=== PATIENT | female | born 1995 | race American Indian/Alaskan Native ===

== ENCOUNTER 2017-02-01 11:26 | Emergency (ER) | payer SELFPAY ==
[2017-02-01 12:25] VITALS: BP 113/69
--- NOTE | 2017-02-01 13:21 | Emergency Department Report ---
Entered by MERRILL GUERRERO, acting as scribe for ROSA JON PA. HPI - General Chief Complaint: Dental/Oral Time Seen by Provider: 02/01/17 12:28 - HPI HPI: 21 y/o female with a PMHx of asthma presents to the ED c/o right lower wisdom dental pain that began 1 month ago. Rates pain a 6/10 in severity and she describes the pain as throbbing in quality. Aggravated with eating and alleviated with nothing. Denies sore throat, headache, fever, chills, nausea, and vomiting. Denies having a dentist, because she doesn't have dental insurance. Denies taking any medication for pain. NKDA. Denies any trauma to face. Denies any headache. Denies any neck pain or stiffness. ED Past Medical Hx - Past Medical History Previous Medical History?: Yes Hx Asthma: Yes - Surgical History Past Surgical History?: No - Family History Family history: no significant - Social History Smoking Status: Never Smoker Substance Use Type: None Other Social History: Single - Medications Home Medications: Home Medications Medication Instructions Recorded Confirmed Last Taken Type Acetaminophen/Codeine [Tylenol 1 tab PO Q6H PRN #12 tab 02/01/17 Unknown Rx /Codeine # 3 tab] Amoxicillin [Amoxicillin TAB] 875 mg PO BID #20 tablet 02/01/17 Unknown Rx Ibuprofen [Motrin] 600 mg PO Q8H PRN #15 tablet 02/01/17 Unknown Rx ED Review of Systems ROS: Stated complaint: TOOTHACHE Other details as noted in HPI Comment: All other systems reviewed and negative Constitutional: denies: chills, fever Eyes: denies: eye pain, eye discharge, vision change ENT: dental pain (right lower wisdom tooth pain). denies: ear pain, throat pain Respiratory: denies: cough, orthopnea, shortness of breath, SOB with exertion, SOB at rest, stridor, wheezing Cardiovascular: denies: chest pain, palpitations Endocrine: no symptoms reported Gastrointestinal: denies: abdominal pain, nausea, diarrhea Genitourinary: denies: urgency, dysuria, discharge Musculoskeletal: denies: back pain, joint swelling, arthralgia Skin: denies: rash, lesions Neurological: denies: headache, weakness, numbness, paresthesias Psychiatric: denies: anxiety, depression Hematological/Lymphatic: denies: easy bleeding, easy bruising Physical Exam - Physical Exam Vital Signs: Vital Signs 02/01/17 12:23 Temperature 98.3 F Pulse Rate 93 H Respiratory 18 Rate Blood Pressure 113/69 O2 Sat by Pulse 97 Oximetry General: General: well nourished, well developed, 21 year old female in no acute distress and nontoxic in appearance Physical Exam: Head: Normocephalic, atraumatic Mouth: Moist, no pharyngeal exudate or erythema. Uvula is midline and oral airway is patent. No facial swelling. No peritonsillar abscesses. Right lower wisdom tooth is partially fractured with no erythema. No trismus present Nose: Normal external appearance, no drainage. Maxillary and frontal sinuses nontender to palpation Neck: Supple, no C-spine tenderness, no tracheal deviation. Nontender to palpation. no adenopathy Ears: Bilateral TMs ar without any redness, swelling, or drainage. Bilateral EAC without any redness, swelling, or drainage. Abdomen: Soft, nontender to palpation in all quadrants, normal bowel sounds in all quadrants and negative CVA tenderness bilaterally. Eyes: Bilateral pupils equal and reactive to light, bilateral EOM intact. Bilateral sclera and conjunctiva without injection. Normal accommodation. Lungs: Clear to auscultation bilaterally, no rhonchi, wheezes, or rales. Normal work of breathing. No use of accessory muscles Extremities: No CCE. +2 pulses. No neurovascular compromise Cardiovascular: S1-S2, regular rate, regular rhythm. No murmurs. Skin: Clean, dry, and intact with no rash and no lesions Psych: Normal mood and behavior ED Course Vital Signs 02/01/17 12:23 Temperature 98.3 F Pulse Rate 93 H Respiratory 18 Rate Blood Pressure 113/69 O2 Sat by Pulse 97 Oximetry - Reevaluation(s) Reevaluation #1: 02/01/17 13:13 Uneventful ED stay ED Medical Decision Making - Medical Decision Making ED course: Patient here for toothache that's been ongoing. She says she has a dentist but has not contacted a dentist and here for pain management and antibiotic. He reports that the pain is in her right lower back tooth and also with fracture. Patient with toothache, dental caries and fractured tooth. Diagnostic and labs: No labs at this time. Review of previous visits. No prior visit noted. Assessment: Toothache, dental caries, fractured tooth. Plan follow-up: Patient to follow-up with her dentist which she does have one and to call today to schedule an appointment. Medication: Motrin and Tylenol 3, amoxicillin. Patient discharged home in stable condition Critical care attestation.: If time is entered above; I have spent that time in minutes in the direct care of this critically ill patient, excluding procedure time. ED Disposition Clinical Impression: Dental caries noted on examination, Toothache Tooth fracture Qualifiers: Encounter type: initial encounter Fracture type: closed Qualified Code(s): S02.5XXA - Fracture of tooth (traumatic), initial encounter for closed fracture Disposition: TO HOME OR SELFCARE Is pt being admited?: No Does the pt Need Aspirin: No Condition: Stable Instructions: Dental Caries (ED), Toothache (ED) Additional Instructions: Please follow up with dentist as discussed Increase fluid intake Take medication as prescribed . please do not drive or operate heavy machinery while taking Tylenol #3 Prescriptions: Acetaminophen/Codeine [Tylenol /Codeine # 3 tab] 1 tab PO Q6H PRN #12 tab PRN Reason: Toothache Amoxicillin [Amoxicillin TAB] 875 mg PO BID #20 tablet Ibuprofen [Motrin] 600 mg PO Q8H PRN #15 tablet PRN Reason: Pain Referrals: Your, Dentist [Other] - 3-5 Days Forms: Work/School Release Form(ED) This documentation as recorded by the YOLANDA aden JASMINE,accurately reflects the service I personally performed and the decisions made by me,ROSA JON PA.
== END 2017-02-01 13:44 | disposition home or self-care (01) ==
LOC: ED 11:26
DX: S02.5XXA Fracture of tooth (traumatic), initial encounter for closed fracture (principal); K02.9 Dental caries, unspecified; J45.909 Unspecified asthma, uncomplicated; X58.XXXA Exposure to other specified factors, initial encounter; Y93.89 Activity, other specified; Y99.9 Unspecified external cause status; Y92.89 Other specified places as the place of occurrence of the external cause
CPT/HCPCS: 99282

== ENCOUNTER 2017-07-07 20:41 | Emergency (ER) | payer OTHER ==
[2017-07-07 21:10] VITALS: BP 123/64
--- NOTE | 2017-07-08 02:46 | Emergency Department Report ---
Upper Respiratory HPI - HPI Chief Complaint: Upper Respiratory Infection Stated Complaint: ASTHMA Time Seen by Provider: 07/08/17 02:40 Duration: 5 Days URI Symptoms: Rhinorrhea: Yes, Cough: Yes, Shortness of Breath: No, Sick Contacts: Yes, Unable to Take Fluids: No, Urine Output Abnormal: No, Listless Behavior: No - Home Meds and Allergies Home Medications: Previous Rx's Medication Instructions Recorded Last Taken Type Acetaminophen/Codeine [Tylenol 1 tab PO Q6H PRN #12 tab 02/01/17 Unknown Rx /Codeine # 3 tab] Amoxicillin [Amoxicillin TAB] 875 mg PO BID #20 tablet 02/01/17 Unknown Rx Ibuprofen [Motrin] 600 mg PO Q8H PRN #15 tablet 02/01/17 Unknown Rx ALBUTEROL Inhaler [ProAir HFA 2 puff IH QID PRN #1 inhalation 07/08/17 Unknown Rx Inhaler] Benzonatate [Tessalon Perles] 100 mg PO Q8HR PRN #30 capsule 07/08/17 Unknown Rx Cetirizine HCl [ZyrTEC] 10 mg PO DAILY #30 capsule 07/08/17 Unknown Rx Fluticasone [Flonase] 1 spray NS QDAY #1 bottle 07/08/17 Unknown Rx predniSONE [Deltasone] 40 mg PO DAILY #10 tablet 07/08/17 Unknown Rx Allergies/Adverse Reactions: Allergies Allergy/AdvReac Type Severity Reaction Status Date / Time No Known Allergies Allergy Verified 02/01/17 12:26 ED Review of Systems ROS: Stated complaint: ASTHMA Other details as noted in HPI Constitutional: denies: chills, fever Eyes: denies: eye pain, eye discharge, vision change ENT: throat pain, congestion Respiratory: cough, wheezing. denies: shortness of breath Cardiovascular: denies: chest pain, palpitations, dyspnea on exertion, syncope, paroxysmal nocturnal dyspnea Endocrine: no symptoms reported Gastrointestinal: abdominal pain Genitourinary: denies: urgency, dysuria, discharge Musculoskeletal: denies: back pain, joint swelling, arthralgia Skin: denies: rash, lesions Neurological: denies: headache, weakness, paresthesias Psychiatric: denies: anxiety, depression Hematological/Lymphatic: denies: easy bleeding, easy bruising ED Past Medical Hx - Past Medical History Hx Asthma: Yes - Social History Smoking Status: Never Smoker Substance Use Type: None - Medications Home Medications: Home Medications Medication Instructions Recorded Confirmed Last Taken Type Acetaminophen/Codeine [Tylenol 1 tab PO Q6H PRN #12 tab 02/01/17 Unknown Rx /Codeine # 3 tab] Amoxicillin [Amoxicillin TAB] 875 mg PO BID #20 tablet 02/01/17 Unknown Rx Ibuprofen [Motrin] 600 mg PO Q8H PRN #15 tablet 02/01/17 Unknown Rx ALBUTEROL Inhaler [ProAir HFA 2 puff IH QID PRN #1 inhalation 07/08/17 Unknown Rx Inhaler] Benzonatate [Tessalon Perles] 100 mg PO Q8HR PRN #30 capsule 07/08/17 Unknown Rx Cetirizine HCl [ZyrTEC] 10 mg PO DAILY #30 capsule 07/08/17 Unknown Rx Fluticasone [Flonase] 1 spray NS QDAY #1 bottle 07/08/17 Unknown Rx predniSONE [Deltasone] 40 mg PO DAILY #10 tablet 07/08/17 Unknown Rx ED Bronchiolitis Physical Exam - Exam General: Vital signs noted. No distress. Alert and acting appropriately. HEENT: Yes Pharyngeal Erythema, Yes Rhinorrhea, No Conjuctival Injection, No Dry Mucous Membranes Ear: Neither TM Bulge, Neither TM Erythema, Neither EAC Discharge Neck: No Adenopathy, No Rigidity Lungs: Yes Clear Lung Sounds, Yes Good Air Exchange, Yes Cough, No Wheezes, No Stridor, No Nasal Flaring, No Retractions Heart: Yes Regular, No Murmur Abdomen: Yes Normal Bowel Sounds, No Tenderness, No Peritoneal Signs Skin: No Rash, No Eczema Neurologic: Alert and oriented, no deficits. Musculoskeletal: Unremarkable. ED Physical Exam - General Limitations: No Limitations General appearance: alert, in no apparent distress - Head Head exam: Present: atraumatic, normocephalic - Eye Eye exam: Present: normal appearance, PERRL, EOMI Pupils: Present: normal accommodation - ENT ENT exam: Present: mucous membranes moist, TM's normal bilaterally, normal external ear exam - Expanded ENT Exam Expanded Ear exam: Present: normal external inspection Mouth exam: Present: normal external inspection, tongue normal. Absent: trismus , muffled voice Teeth exam: Present: normal inspection Throat exam: Positive: tonsillar erythema. Negative: tonsillomegaly, tonsillar exudate, R peritonsillar mass, L peritonsillar mass - Neck Neck exam: Present: normal inspection, full ROM. Absent: tenderness, lymphadenopathy, thyromegaly - Respiratory Respiratory exam: Present: normal lung sounds bilaterally. Absent: respiratory distress, wheezes, stridor, chest wall tenderness, prolonged expiratory - Cardiovascular Cardiovascular Exam: Present: regular rate, normal rhythm, normal heart sounds. Absent: systolic murmur, diastolic murmur, rubs, gallop - GI/Abdominal GI/Abdominal exam: Present: soft, normal bowel sounds - Rectal Rectal exam: Present: deferred, normal inspection - Extremities Exam Extremities exam: Present: normal inspection, full ROM, normal capillary refill. Absent: tenderness, pedal edema, joint swelling, calf tenderness - Back Exam Back exam: Present: normal inspection, full ROM. Absent: tenderness, CVA tenderness (R), CVA tenderness (L), muscle spasm, paraspinal tenderness, vertebral tenderness, rash noted - Neurological Exam Neurological exam: Present: alert, oriented X3, CN II-XII intact, normal gait, reflexes normal - Psychiatric Psychiatric exam: Present: normal affect, normal mood - Skin Skin exam: Present: warm, dry, intact, normal color. Absent: rash ED Course Vital Signs 07/07/17 21:08 Temperature 98 F Pulse Rate 63 Blood Pressure 123/64 O2 Sat by Pulse 99 Oximetry ED Medical Decision Making - Medical Decision Making Patient is a 22-year-old asthmatic -[place] female out of albuterol inhaler for 3 months states cough and congestion for the past 3-4 days, with nocturnal wheezing there is no fever or chills no respiratory distress chest pain or shortness of breath patient does not have current PCP for refills states primary concern symptoms tonight coughing congestion, exam patient appears well and nontoxic ENT unremarkable TMs normal nose clear no polyps clear postnasal drip no obstruction pharynx mild erythema no lesions no exudate uvula midline no stridor lungs are clear this time all lobes . No wheezing no rales rhonchi plan refilled her albuterol prednisone burst patient will continue [id number] Zyrtec and Flonase but will prescribe same as requested pt will follow up with primary care , referral to Dr. Arellano, or return to the emergency department if symptoms worsen patient verbalizes understanding and agreement with discharge plan we'll DC to self in stable condition at this time. Critical care attestation.: If time is entered above; I have spent that time in minutes in the direct care of this critically ill patient, excluding procedure time. ED Disposition Clinical Impression: Bronchitis Disposition: DC-01 TO HOME OR SELFCARE Is pt being admited?: No Does the pt Need Aspirin: No Condition: Good Instructions: Chronic Bronchitis (ED) Prescriptions: ALBUTEROL Inhaler [ProAir HFA Inhaler] 2 puff IH QID PRN #1 inhalation PRN Reason: Shortness Of Breath Benzonatate [Tessalon Perles] 100 mg PO Q8HR PRN #30 capsule PRN Reason: Cough Cetirizine HCl [ZyrTEC] 10 mg PO DAILY #30 capsule Fluticasone [Flonase] 1 spray NS QDAY #1 bottle predniSONE [Deltasone] 40 mg PO DAILY #10 tablet Referrals: PRIMARY CARE, [Primary Care Provider] - 3-5 Days Forms: Work/School Release Form(ED) Time of Disposition: 02:58
== END 2017-07-08 03:03 | disposition home or self-care (01) ==
LOC: ED 20:41
DX: J40 Bronchitis, not specified as acute or chronic (principal)
CPT/HCPCS: 99282

== ENCOUNTER 2017-09-22 10:31 | Emergency (ER) | payer OTHER ==
[2017-09-22] MEDS ORDERED: MOTRIN PO ONE (13:24)
[2017-09-22] MEDS ORDERED: MUCINEX ER PO ONE (13:26)
[2017-09-22] MEDS ORDERED: ZOFRAN ODT PO ONE (13:27)
--- NOTE | 2017-09-22 13:36 | Emergency Department Report ---
Chief Complaint: Fever Stated Complaint: FEVER/CHILLS/BODY ACHES Time Seen by Provider: 09/22/17 13:18 - HPI History of Present Illness: The patient's 22-year-old female presents for evaluation of URI symptoms. The patient reports 1 day of fever, nonproductive cough, shortness of throat, and generalized myalgias. The patient denies headache, dyspnea, chest pain, neck stiffness, dysphagia, stridor, drooling, difficulty tolerating secretions, dysphonia, hoarseness of voice, abdominal pain, dysuria, vomiting, diarrhea, vaginal discharge, vaginal bleeding. - Exam Vital Signs: Vital Signs 09/22/17 09/22/17 11:48 13:27 Temperature 100.1 F H Pulse Rate 113 H 94 H Respiratory 18 Rate Blood Pressure 122/68 O2 Sat by Pulse 100 Oximetry MSE screening note: Focused history and physical exam performed. Due to findings the following was ordered: ED Disposition for MSE Condition: Stable Referrals: PRIMARY CARE, [Primary Care Provider] - 3-5 Days
[2017-09-22] MEDS ORDERED: TYLENOL PO ONE (13:37)
--- NOTE | 2017-09-22 13:57 | XRay Report ---
Chest 2 views: History: Dyspnea. Findings: Normal cardiomediastinal silhouette the trachea is midline. No consolidation, pneumothorax or pleural effusion. Impression: No acute cardiopulmonary findings.
[2017-09-22 14:21] LABS: Bilirubin,Urine NEG (Negative); Blood,Urine NEG (Negative); Color,Urine Yellow (Yellow); Mucus,Urine FEW /HPF; Protein,Urine <15 mg/dL mg/dL (Negative)
--- NOTE | 2017-09-22 15:26 | Emergency Department Report ---
- General Chief Complaint: Fever Stated Complaint: FEVER/CHILLS/BODY ACHES Time Seen by Provider: 09/22/17 13:18 Source: patient Mode of arrival: Ambulatory Limitations: No Limitations - History of Present Illness Initial Comments: This is a 22-year-old female nontoxic, well nourished in appearance, no acute signs of distress presents to the ED with c/o of productive cough, fever, chills , body aches, rhinorrhea, nasal congestion, and sore throat x1 day. Patient describes productive cough as yellow mucus production. Patient denies any sick contact. Patient denies any recent travels, long car, recent hospital stays. Patient denies any calf pain or calf tenderness. Patient denies any chest pain , short of breath, fever, chills, nausea, vomiting, hemoptysis, numbness, tingling, headache or stiff neck. Patient denies any allergies or significant PMH. MD Complaint: fever, cough, sore throat, rhinorrhea, nasal congestion, other ( body aches) -: days(s) (1) Severity: mild Severity scale (0 -10): 8 Quality: aching Consistency: constant Improves With: nothing Worsens With: nothing Associated Symptoms: fever, chills, rhinorrhea, nasal congestion, sore throat, cough. denies: myalgias, diaphoresis, headache, stiff neck, chest pain, shortness of breath, abdominal pain, nausea, vomiting, diarrhea, dysuria, rash, confusion, right sweats, weight loss, epistaxis, hoarseness, ear pain Treatments Prior to Arrival: none - Related Data Previous Rx's Medication Instructions Recorded Last Taken Type Acetaminophen/Codeine [Tylenol 1 tab PO Q6H PRN #12 tab 02/01/17 Unknown Rx /Codeine # 3 tab] Amoxicillin [Amoxicillin TAB] 875 mg PO BID #20 tablet 02/01/17 Unknown Rx Ibuprofen [Motrin] 600 mg PO Q8H PRN #15 tablet 02/01/17 Unknown Rx ALBUTEROL Inhaler [ProAir HFA 2 puff IH QID PRN #1 inhalation 07/08/17 Unknown Rx Inhaler] Benzonatate [Tessalon Perles] 100 mg PO Q8HR PRN #30 capsule 07/08/17 Unknown Rx Cetirizine HCl [ZyrTEC] 10 mg PO DAILY #30 capsule 07/08/17 Unknown Rx Fluticasone [Flonase] 1 spray NS QDAY #1 bottle 07/08/17 Unknown Rx predniSONE [Deltasone] 40 mg PO DAILY #10 tablet 07/08/17 Unknown Rx Amoxicillin/K Clav Tab [Augmentin 1 tab PO Q12HR #20 tab 09/22/17 Unknown Rx 875 mg] Benzonatate [Tessalon Perle] 100 mg PO Q6H PRN #20 capsule 09/22/17 Unknown Rx Ibuprofen [Motrin] 600 mg PO Q8H PRN #30 tablet 09/22/17 Unknown Rx Oseltamivir [Tamiflu] 75 mg PO BID #14 cap 09/22/17 Unknown Rx Allergies Allergy/AdvReac Type Severity Reaction Status Date / Time No Known Allergies Allergy Verified 02/01/17 12:26 ED Review of Systems ROS: Stated complaint: FEVER/CHILLS/BODY ACHES Other details as noted in HPI Constitutional: chills, fever Eyes: denies: eye pain, eye discharge, vision change ENT: throat pain. denies: ear pain Respiratory: cough. denies: shortness of breath, wheezing Cardiovascular: denies: chest pain, palpitations Endocrine: no symptoms reported Gastrointestinal: denies: abdominal pain, nausea, diarrhea Genitourinary: denies: urgency, dysuria, discharge Musculoskeletal: denies: back pain, joint swelling, arthralgia Skin: denies: rash, lesions Neurological: denies: headache, weakness, paresthesias Psychiatric: denies: anxiety, depression Hematological/Lymphatic: denies: easy bleeding, easy bruising ED Past Medical Hx - Past Medical History Hx Asthma: Yes - Surgical History Past Surgical History?: No - Social History Smoking Status: Current Every Day Smoker Substance Use Type: None - Medications Home Medications: Home Medications Medication Instructions Recorded Confirmed Last Taken Type Acetaminophen/Codeine [Tylenol 1 tab PO Q6H PRN #12 tab 02/01/17 Unknown Rx /Codeine # 3 tab] Amoxicillin [Amoxicillin TAB] 875 mg PO BID #20 tablet 02/01/17 Unknown Rx Ibuprofen [Motrin] 600 mg PO Q8H PRN #15 tablet 02/01/17 Unknown Rx ALBUTEROL Inhaler [ProAir HFA 2 puff IH QID PRN #1 inhalation 07/08/17 Unknown Rx Inhaler] Benzonatate [Tessalon Perles] 100 mg PO Q8HR PRN #30 capsule 07/08/17 Unknown Rx Cetirizine HCl [ZyrTEC] 10 mg PO DAILY #30 capsule 07/08/17 Unknown Rx Fluticasone [Flonase] 1 spray NS QDAY #1 bottle 07/08/17 Unknown Rx predniSONE [Deltasone] 40 mg PO DAILY #10 tablet 07/08/17 Unknown Rx Amoxicillin/K Clav Tab [Augmentin 1 tab PO Q12HR #20 tab 09/22/17 Unknown Rx 875 mg] Benzonatate [Tessalon Perle] 100 mg PO Q6H PRN #20 capsule 09/22/17 Unknown Rx Ibuprofen [Motrin] 600 mg PO Q8H PRN #30 tablet 09/22/17 Unknown Rx Oseltamivir [Tamiflu] 75 mg PO BID #14 cap 09/22/17 Unknown Rx ED Physical Exam - General Limitations: No Limitations General appearance: alert, in no apparent distress - Head Head exam: Present: atraumatic, normocephalic - Eye Eye exam: Present: normal appearance, PERRL, EOMI Pupils: Present: normal accommodation - ENT ENT exam: Present: mucous membranes moist, TM's normal bilaterally, normal external ear exam - Expanded ENT Exam Expanded Ear exam: Present: normal external inspection Mouth exam: Present: normal external inspection, tongue normal. Absent: drooling, trismus, muffled voice, tongue elevation, laceration Teeth exam: Present: normal inspection Throat exam: Positive: tonsillar erythema, tonsillomegaly (2+), tonsillar exudate, other (Uvula midline. No abscess or swelling noted.). Negative: R peritonsillar mass, L peritonsillar mass - Neck Neck exam: Present: normal inspection, full ROM, lymphadenopathy (bilateral tonsillar). Absent: tenderness, meningismus, thyromegaly - Respiratory Respiratory exam: Present: normal lung sounds bilaterally. Absent: respiratory distress, wheezes, rales, rhonchi, stridor, chest wall tenderness, accessory muscle use, decreased breath sounds, prolonged expiratory - Cardiovascular Cardiovascular Exam: Present: regular rate, normal rhythm, tachycardia, normal heart sounds. Absent: irregular rhythm, systolic murmur, diastolic murmur, rubs , gallop - GI/Abdominal GI/Abdominal exam: Present: soft, normal bowel sounds. Absent: distended, tenderness, guarding, rebound, rigid, diminished bowel sounds - Rectal Rectal exam: Present: deferred - Extremities Exam Extremities exam: Present: normal inspection, full ROM, normal capillary refill. Absent: tenderness, pedal edema, joint swelling, calf tenderness - Back Exam Back exam: Present: normal inspection, full ROM. Absent: tenderness, CVA tenderness (R), CVA tenderness (L), muscle spasm, paraspinal tenderness, vertebral tenderness, rash noted - Neurological Exam Neurological exam: Present: alert, oriented X3, CN II-XII intact, normal gait, reflexes normal - Psychiatric Psychiatric exam: Present: normal affect, normal mood - Skin Skin exam: Present: warm, dry, intact, normal color. Absent: rash ED Course Vital Signs 09/22/17 09/22/17 11:48 13:27 Temperature 100.1 F H Pulse Rate 113 H 94 H Respiratory 18 Rate Blood Pressure 122/68 O2 Sat by Pulse 100 Oximetry - Reevaluation(s) Reevaluation #1: 09/22/17 15:23 Patient is speaking in full sentences with no signs of distress noted. - Consultations Consultation #1: 09/22/17 15:24 Patient has been consulted with Dr. De La Rosa about patient history, physical exam, and labs and examined and screened patient and agrees to ED plan of care and discharge plan of care. ED Medical Decision Making - Medical Decision Making This is a 22-year-old female that presents with upper respiratory infection, tonsillitis, and influenza. Patient is stable and was examined by me. Chest x- ray has been obtained and dictated by radiologist with normal exam. Patient is notified of x-ray results with no questions noted. Due to patient having symptoms of upper respiratory infection and symptoms of influenza and worsening I will treat patient empirically Tamiflu with augmentin. Patient is within the >72 hour window for tamiflu. Patient was instructed to increase hydration, rest and take Motrin for fever episodes. Vitals stable. Patient is nonfebrile and normal heart rate. Patient was orally hydrated and patient tolerated well known nausea or vomiting. Patient was instructed Follow-up with a primary care doctor in 3-5 days or if symptoms worsen and continue return to emergency room as soon as possible. At time time of discharge, the patient does not seem toxic or ill in appearance. No acute signs of distress noted. Patient agrees to discharge treatment plan of care. No further questions noted by the patient. Critical care attestation.: If time is entered above; I have spent that time in minutes in the direct care of this critically ill patient, excluding procedure time. ED Disposition Clinical Impression: Tonsillitis, Influenza Upper respiratory infection Qualifiers: URI type: unspecified URI Qualified Code(s): J06.9 - Acute upper respiratory infection, unspecified Disposition: TO HOME OR SELFCARE Is pt being admited?: No Does the pt Need Aspirin: No Condition: Stable Instructions: Upper Respiratory Infection (ED), Amoxicillin/Clavulanate Potassium (By mouth), Influenza (ED), Oseltamivir (By mouth) Additional Instructions: Follow-up with a primary care doctor in 3-5 days or if symptoms worsen and continue return to emergency room as soon as possible. Increase rest, hydration and take Motrin as prescribed during fever episode. Prescriptions: Amoxicillin/K Clav Tab [Augmentin 875 mg] 1 tab PO Q12HR #20 tab Benzonatate [Tessalon Perle] 100 mg PO Q6H PRN #20 capsule PRN Reason: Cough Ibuprofen [Motrin] 600 mg PO Q8H PRN #30 tablet PRN Reason: Pain Oseltamivir [Tamiflu] 75 mg PO BID #14 cap Referrals: PRIMARY CARE, [Primary Care Provider] - 3-5 Days HELLEN GHOSH MD [Staff Physician] - 3-5 Days [facility] [Outside] - 3-5 Days [facility] [Outside] - 3-5 Days Forms: Work/School Release Form(ED)
[2017-09-22 15:39] VITALS: BP 98/40
== END 2017-09-22 15:53 | disposition home or self-care (01) ==
LOC: ED 10:31
DX: J03.90 Acute tonsillitis, unspecified (principal); J45.909 Unspecified asthma, uncomplicated; F17.200 Nicotine dependence, unspecified, uncomplicated
CPT/HCPCS: 71046; 81001; 99284; Q0162

== ENCOUNTER 2018-02-15 13:20 | Emergency (ER) | payer OTHER ==
[2018-02-15 13:46] VITALS: BP 118/70
[2018-02-15 15:16] LABS: HCG Qualitative,Urine Negative (Negative)
--- NOTE | 2018-02-15 16:18 | XRay Report ---
FINAL REPORT EXAM: XR SHOULDER 2+V RT HISTORY: pain/creptius patient with history of recurrent dislocations, increasing frequency TECHNIQUE: Three views right shoulder Comparison: FINDINGS: Normal bony mineralization. No fracture or dislocation. No degenerative arthritis. Mild superiorly located distal clavicle relative to the acromion. AC joint measures 4.3 millimeters. Imaged right lung apex is clear. IMPRESSION: No acute fracture or dislocation. Mildly widened right AC joint measures 4.3 millimeters. Distal clavicle is slightly superiorly located relative to the acromion.
--- NOTE | 2018-02-15 17:03 | Emergency Department Report ---
ED General Adult HPI - General Chief complaint: Extremity Injury, Upper Stated complaint: SHOULDER ACHES/PAIN Time Seen by Provider: 02/15/18 16:43 Source: patient Mode of arrival: Ambulatory Limitations: No Limitations - History of Present Illness Initial comments: Patient complains of right shoulder pain for the last month and feels at times is popping out of place. Patient denies any injury or acute trauma to that shoulder. 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 Patient has no other complaints. -: Sudden Location: upper extremity Radiation: non-radiation Severity scale (0 -10): 5 Improves with: rest Worsens with: movement Associated Symptoms: denies other symptoms Treatments Prior to Arrival: none - Related Data Previous Rx's Medication Instructions Recorded Last Taken Type Acetaminophen/Codeine [Tylenol 1 tab PO Q6H PRN #12 tab 02/01/17 Unknown Rx /Codeine # 3 tab] Amoxicillin [Amoxicillin TAB] 875 mg PO BID #20 tablet 02/01/17 Unknown Rx Ibuprofen [Motrin] 600 mg PO Q8H PRN #15 tablet 02/01/17 Unknown Rx ALBUTEROL Inhaler [ProAir HFA 2 puff IH QID PRN #1 inhalation 07/08/17 Unknown Rx Inhaler] Benzonatate [Tessalon Perles] 100 mg PO Q8HR PRN #30 capsule 07/08/17 Unknown Rx Cetirizine HCl [ZyrTEC] 10 mg PO DAILY #30 capsule 07/08/17 Unknown Rx Fluticasone [Flonase] 1 spray NS QDAY #1 bottle 07/08/17 Unknown Rx predniSONE [Deltasone] 40 mg PO DAILY #10 tablet 07/08/17 Unknown Rx Amoxicillin/K Clav Tab [Augmentin 1 tab PO Q12HR #20 tab 09/22/17 Unknown Rx 875 mg] Benzonatate [Tessalon Perle] 100 mg PO Q6H PRN #20 capsule 09/22/17 Unknown Rx Ibuprofen [Motrin] 600 mg PO Q8H PRN #30 tablet 09/22/17 Unknown Rx Oseltamivir [Tamiflu] 75 mg PO BID #14 cap 09/22/17 Unknown Rx Ibuprofen [Motrin] 800 mg PO Q8HR PRN #30 tablet 02/15/18 Unknown Rx traMADol [Ultram] 50 mg PO Q6HR PRN #12 tablet 02/15/18 Unknown Rx Allergies Allergy/AdvReac Type Severity Reaction Status Date / Time No Known Allergies Allergy Verified 02/01/17 12:26 ED Review of Systems ROS: Stated complaint: SHOULDER ACHES/PAIN Other details as noted in HPI Comment: All other systems reviewed and negative Constitutional: denies: chills, fever Eyes: denies: eye pain, eye discharge, vision change ENT: denies: ear pain, throat pain Respiratory: denies: cough, shortness of breath, wheezing Cardiovascular: denies: chest pain, palpitations Endocrine: no symptoms reported Gastrointestinal: denies: abdominal pain, nausea, diarrhea Genitourinary: denies: urgency, dysuria, discharge Musculoskeletal: denies: back pain, joint swelling, arthralgia Skin: denies: rash, lesions Neurological: denies: headache, weakness, paresthesias Psychiatric: denies: anxiety, depression Hematological/Lymphatic: denies: easy bleeding, easy bruising ED Past Medical Hx - Past Medical History Hx Asthma: Yes - Social History Smoking Status: Never Smoker Substance Use Type: None - Medications Home Medications: Home Medications Medication Instructions Recorded Confirmed Last Taken Type Acetaminophen/Codeine [Tylenol 1 tab PO Q6H PRN #12 tab 02/01/17 Unknown Rx /Codeine # 3 tab] Amoxicillin [Amoxicillin TAB] 875 mg PO BID #20 tablet 02/01/17 Unknown Rx Ibuprofen [Motrin] 600 mg PO Q8H PRN #15 tablet 02/01/17 Unknown Rx ALBUTEROL Inhaler [ProAir HFA 2 puff IH QID PRN #1 inhalation 07/08/17 Unknown Rx Inhaler] Benzonatate [Tessalon Perles] 100 mg PO Q8HR PRN #30 capsule 07/08/17 Unknown Rx Cetirizine HCl [ZyrTEC] 10 mg PO DAILY #30 capsule 07/08/17 Unknown Rx Fluticasone [Flonase] 1 spray NS QDAY #1 bottle 07/08/17 Unknown Rx predniSONE [Deltasone] 40 mg PO DAILY #10 tablet 07/08/17 Unknown Rx Amoxicillin/K Clav Tab [Augmentin 1 tab PO Q12HR #20 tab 09/22/17 Unknown Rx 875 mg] Benzonatate [Tessalon Perle] 100 mg PO Q6H PRN #20 capsule 09/22/17 Unknown Rx Ibuprofen [Motrin] 600 mg PO Q8H PRN #30 tablet 09/22/17 Unknown Rx Oseltamivir [Tamiflu] 75 mg PO BID #14 cap 09/22/17 Unknown Rx Ibuprofen [Motrin] 800 mg PO Q8HR PRN #30 tablet 02/15/18 Unknown Rx traMADol [Ultram] 50 mg PO Q6HR PRN #12 tablet 02/15/18 Unknown Rx ED Physical Exam - General Limitations: No Limitations General appearance: alert, in no apparent distress - Head Head exam: Present: atraumatic, normocephalic - Eye Eye exam: Present: normal appearance - ENT ENT exam: Present: mucous membranes moist - Neck Neck exam: Present: normal inspection - Respiratory Respiratory exam: Present: normal lung sounds bilaterally. Absent: respiratory distress - Cardiovascular Cardiovascular Exam: Present: regular rate - Extremities Exam Extremities exam: Present: other (patient has tenderness to palpation of the right AC Joint) - Back Exam Back exam: Present: normal inspection - Neurological Exam Neurological exam: Present: alert, oriented X3, CN II-XII intact. Absent: motor sensory deficit - Psychiatric Psychiatric exam: Present: normal affect, normal mood - Skin Skin exam: Present: warm, dry, intact, normal color. Absent: rash ED Course Vital Signs 02/15/18 13:43 Temperature 98.2 F Pulse Rate 81 Respiratory 18 Rate Blood Pressure 118/70 O2 Sat by Pulse 100 Oximetry ED Medical Decision Making - Medical Decision Making Discussed results with patient and plan a care Sling provided Critical care attestation.: If time is entered above; I have spent that time in minutes in the direct care of this critically ill patient, excluding procedure time. ED Disposition Clinical Impression: Acromioclavicular (joint) (ligament) sprain Disposition: DC-01 TO HOME OR SELFCARE Is pt being admited?: No Does the pt Need Aspirin: No Condition: Stable Instructions: Acromioclavicular Separation (ED) Additional Instructions: return if worse Prescriptions: Ibuprofen [Motrin] 800 mg PO Q8HR PRN #30 tablet PRN Reason: pain traMADol [Ultram] 50 mg PO Q6HR PRN #12 tablet PRN Reason: Pain Referrals: PRIMARY CARE, [Primary Care Provider] - 3-5 Days CARLOS HELLER MD [Staff Physician] - 3-5 Days [facility] [Outside] - 3-5 Days [facility] [Outside] - 3-5 Days Forms: Work/School Release Form(ED) Time of Disposition: 17:01
== END 2018-02-15 17:18 | disposition home or self-care (01) ==
LOC: ED 13:20
DX: S43.51XA Sprain of right acromioclavicular joint, initial encounter (principal); J45.909 Unspecified asthma, uncomplicated; X58.XXXA Exposure to other specified factors, initial encounter; Y93.89 Activity, other specified; Y99.8 Other external cause status; Y92.89 Other specified places as the place of occurrence of the external cause
CPT/HCPCS: 81025

== ENCOUNTER 2018-07-12 15:48 | Emergency (ER) | payer SELFPAY ==
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
== END 2018-07-12 16:59 | disposition home or self-care (01) ==
LOC: ED 15:48
CPT/HCPCS: 99282

== ENCOUNTER 2019-11-06 09:43 | Outpatient (CLI) | payer MEDICAID ==
[2019-11-06] MEDS ORDERED: ONDANSETRON 4 MG/2 ML INJ IV ONE (10:17)
[2019-11-06] MEDS ORDERED: LACTATED RINGERS 1,000 ML IV ONE (10:17)
[2019-11-06] MEDS ORDERED: FAMOTIDINE 20 MG/2 ML INJ IV ONE (10:19)
[2019-11-06 10:46] LABS: Eosinophils % (Auto) 0.2 % (0.0-4.3); Monocytes # (Auto) 0.6 K/mm3 (0.0-0.8); Monocytes % (Auto) 7.8 % (0.0-7.3)
[2019-11-06 10:50] LABS: Hematocrit 33.9 % (30.3-42.9); Hemoglobin 10.8 gm/dl (10.1-14.3); Mean Corpuscular HGB Conc 32 % (30-34); Red Blood Count 5.01 M/mm3 (3.65-5.03); Red Cell Distribution Width 15.5 % (13.2-15.2)
[2019-11-06 10:59] LABS: Bilirubin,Urine NEG (Negative); Blood,Urine NEG (Negative); Color,Urine Yellow (Yellow); Mucus,Urine FEW /HPF; Protein,Urine <15 mg/dL mg/dL (Negative)
[2019-11-06 11:07] LABS: Alanine Aminotransferase 12 units/L (7-56); Albumin 3.4 g/dL (3.9-5); BUN/Creatinine Ratio 10; Blood Urea Nitrogen 4 mg/dL (7-17); Calcium 9.3 mg/dL (8.4-10.2); Hemolysis Index 46
[2019-11-06 11:30] LABS: Mean Corpuscular Volume 68 fl (79-97)
[2019-11-06 12:27] VITALS: BP 118/68
[2019-11-06 12:52] LABS: Basophils % (Manual) 0 % (0.0-1.8); Eosinophils % (Manual) 0 % (0.0-4.3); Total Cells Counted 100
[2019-11-06 12:53] LABS: Anisocytosis 1+; Platelet Estimate Consistent w Auto; Tear Drop Cells 1+
[2019-11-06 12:54] LABS: Platelet Count 216 K/mm3 (140-440)
--- NOTE | 2019-11-06 18:11 | Ultrasound Report ---
LIMITED OBSTETRIC ULTRASOUND WITH BIOPHYSICAL PROFILE HISTORY: Evaluate amniotic fluid index. Clinical gestational age 38 weeks 6 days COMPARISON: None. TECHNIQUE: Obstetric sonogram performed for biophysical profile assessment. FINDINGS: Gestation: Single intrauterine Presentation: Currentlycephalic Amniotic Fluid Index: 17.2 cm. There is suggestion of a small amount of debris within the amniotic fl uid, likely of no clinical significance at this late gestational age. ANATOMY: Detailed anatomic survey was not requested. heart rate is 156 beats per minute. BIOPHYSICAL PROFILE: Movement: 2 Tone: 2 Breathin Amniotic Fluid: 2 Total: 8 out of 8 IMPRESSION Biophysical Profile 02/16. Normal AMBIKA of 17.2 cm. Signer Name: Socorro Amezcua MD Signed: 11/06/2019 6:07 PM Workstation Name: [id number]
== END 2019-11-06 13:35 | disposition home or self-care (01) ==
LOC: TRG 09:43 → APU 09:46 → TRG 13:35
PROVIDERS: ATTEND Obstetrics & Gynecology
DX: O26.893 Other specified pregnancy related conditions, third trimester (principal); R07.89 Other chest pain; O47.1 False labor at or after 37 completed weeks of gestation; Z3A.38 38 weeks gestation of pregnancy
CPT/HCPCS: 36415; 59025; 76815; 76819; 80053; 81001; 85007; 85025; 96365; 96366; 96368; J2405; J7120; 96360; 96374; 96375

== ENCOUNTER 2019-11-14 11:56 | Outpatient (CLI) | payer MEDICAID ==
[2019-11-14 12:22] VITALS: BP 125/78
--- NOTE | 2019-11-14 14:16 | Ultrasound Report ---
ULTRASOUND BIOPHYSICAL PROFILE INDICATION: CONTRACTIONS, DECREASE FHT'S / BPP. COMPARISON: 11/06/2019 FINDINGS: heart rate is 144 beats per minute. breathing movement = 2 Gross body movement = 2 tone = 2 Qualitative amniotic fluid volume = 2 IMPRESSION: biophysical profile = 02/16 Signer Name: You Silva Jr, MD Signed: 11/14/2019 2:12 PM Workstation Name: [id number]
== END 2019-11-14 14:19 | disposition home or self-care (01) ==
LOC: TRG 11:56 → APU 12:06 → TRG 14:19
PROVIDERS: ATTEND Obstetrics & Gynecology
DX: O47.1 False labor at or after 37 completed weeks of gestation (principal); Z3A.40 40 weeks gestation of pregnancy
CPT/HCPCS: 59025; 76819

== ENCOUNTER 2019-11-14 19:31 | Inpatient (IN) | payer MEDICAID ==
[2019-11-14] MEDS ORDERED: TERBUTALINE 1 MG/1 ML INJ SUB-Q PRN (20:41)
[2019-11-14] MEDS ORDERED: NALOXONE 0.4 MG/1 ML INJ IV PRN (20:41)
[2019-11-14] MEDS ORDERED: fentaNYL 100 MCG/2 ML INJ IV PRN (20:41)
[2019-11-14] MEDS ORDERED: MINERAL OIL 30 ML ORAL LIQD PO PRN (20:41)
[2019-11-14] MEDS ORDERED: TERBUTALINE 1 MG/1 ML INJ IVP PRN (20:41)
[2019-11-14] MEDS ORDERED: ONDANSETRON 4 MG/2 ML INJ IV PRN (20:41)
[2019-11-14] MEDS ORDERED: ePHEDrine SULFATE 50 MG/1 ML INJ IV PRN ×2 (20:41→22:37)
[2019-11-14] MEDS ORDERED: BUTORPHANOL 2 MG/1 ML INJ IV PRN (20:41)
[2019-11-14] MEDS ORDERED: LACTATED RINGERS 1,000 ML ONE (20:42)
[2019-11-14] MEDS ORDERED: LACTATED RINGERS 1,000 ML IV SCH (21:00)
[2019-11-14] MEDS ORDERED: LIDOCAINE (2%) 20 MG/1 ML VIAL 20 ML MDV INFILTRATI ONE (21:00)
[2019-11-14] MEDS ORDERED: OXYTOCIN DRIP 30 UNITS/500 ML BAG IV SCH (21:00)
[2019-11-14] MEDS ORDERED: DEXMEDETOMIDINE 200 MCG/2 ML VIAL IV ONE (22:37)
[2019-11-14] MEDS ORDERED: fentaNYL-BUPIV 2 MCG/ML-0.125% 200 MCG/100 ML BAG EPIDURAL ONE (22:37)
[2019-11-14] MEDS ORDERED: NALOXONE 2 MG/2 ML INJ IV PRN (22:37)
--- NOTE | 2019-11-14 22:37 | Anesthesia Consultation ---
Anesthesia Consult and Med Hx Date of service: 11/14/19 - Airway Anesthetic Teeth Evaluation: Good ROM Head & Neck: Adequate Mental/Hyoid Distance: Adequate Mallampati Class: Class II Intubation Access Assessment: Probably Good - Pulmonary Exam CTA: Yes - Cardiac Exam Cardiac Exam: RRR - Pre-Operative Health Status ASA Pre-Surgery Classification: ASA2 Proposed Anesthetic Plan: Epidural - Pulmonary Hx Asthma: Yes COPD: No Hx Pneumonia: No - Cardiovascular System Hx Hypertension: No - Central Nervous System Hx Seizures: Yes Hx Psychiatric Problems: No - Endocrine Hx Renal Disease: No Hx End Stage Renal Disease: No Hx Hypothyroidism: No Hx Hyperthyroidism: No - Hematic Hx Anemia: No Hx Sickle Cell Disease: No - Other Systems Hx Alcohol Use: No
[2019-11-14] MEDS ORDERED: fentaNYL-BUPIV 2 MCG/ML-0.125% 200 MCG/100 ML BAG EPIDURAL SCH (23:00)
--- NOTE | 2019-11-14 23:00 | History and Physical Report ---
History of Present Illness Date of examination: 11/14/19 Date of admission: 11/14/19 20:42 Chief complaint: contractions History of present illness: Pt is a 24 year old ALLEGRA 11/13/19 at 40w1d who presents with regular painful contractions and cervical change from 3 to 4 cm while being evaluated in triage. She denies vaginal bleeding or leakage of fluid. She has had care at [facility] since 13 wks complicated by asthma, and alpha thalassemia carrier status. She is GBS negative. Past History Past Medical History: asthma Past Surgical History: no surgical history Family/Genetic History: diabetes, hypertension Social history: no significant social history - Obstetrical History Expected Date of Delivery: 11/13/19 Actual Gestation: 40 Week(s) 1 Day(s) : 3 Para: 1 Hx # Term Pregnancies: 1 Number of Pregnancies: 0 Spontaneous Abortions: 0 Induced : 1 Number of Living Children: 1 Medications and Allergies Allergies Allergy/AdvReac Type Severity Reaction Status Date / Time No Known Allergies Allergy Verified 11/06/19 10:13 Home Medications Medication Instructions Recorded Confirmed Last Taken Type No Known Home Medications [No 11/14/19 11/14/19 Unknown History Reported Home Medications] Active Meds: Active Medications Butorphanol Tartrate (Stadol) 2 mg IV Q2H PRN PRN Reason: Pain , Severe (7-10) Last Admin: 11/14/19 21:28 Dose: 2 mg Documented by: Ephedrine Sulfate (Ephedrine Sulfate) 10 mg IV Q2M PRN PRN Reason: Hypotension Ephedrine Sulfate (Ephedrine Sulfate) 10 mg IV Q2M PRN PRN Reason: Hypotension Fentanyl (Sublimaze) 100 mcg IV Q2H PRN PRN Reason: Pain,Severe (7-10) LABOR PAIN Oxytocin/Sodium Chloride (Pitocin/Ns 20 Unit/1000ml Drip) 20 units in 1,000 mls @ 125 mls/hr IV DIRECT CHAVO Oxytocin/Sodium Chloride (Pitocin/Ns 30 Unit/500ml) 30 units in 500 mls @ 4 mls/hr IV TITR CHAVO; Protocol Lactated Ringer's (Lactated Ringers) 1,000 mls @ 125 mls/hr IV DIRECT CHAVO Fentanyl/Bupivacaine/Sodium Chlor (Fentanyl-Bupiv 2 Mcg/Ml-0.125%) 200 mcg in 100 mls @ 12 mls/hr EPIDURAL TITR CHAVO; Protocol Mineral Oil (Mineral Oil) 30 ml PO QHS PRN PRN Reason: Constipation Naloxone HCl (Naloxone) 0.1 mg IV Q2MIN PRN PRN Reason: Res Rate </= 8 or 02 SAT < 92% Naloxone HCl (Naloxone) 0.2 mg IV Q5M PRN PRN Reason: Respiratory sedation Ondansetron HCl (Zofran) 4 mg IV Q8H PRN PRN Reason: Nausea And Vomiting Terbutaline Sulfate (Brethine) 0.25 mg SUB-Q ONCE PRN PRN Reason: Hyperstimulation/Hypertonicity Terbutaline Sulfate (Brethine) 0.25 mg IVP ONCE PRN PRN Reason: Hyperstimulation/Hypertonicity Review of Systems All systems: negative - Vital Signs Vital signs: Vital Signs Temp Pulse Resp BP 97.9 F 77 11 L 118/58 11/14/19 19:34 11/14/19 19:34 11/14/19 19:34 11/14/19 19:34 Temp Pulse Resp BP Pulse Ox 97.9 F 75 11 L 123/58 100 11/14/19 19:34 11/14/19 22:58 11/14/19 19:34 11/14/19 22:58 11/14/19 22:56 - Physical Exam Breasts: Positive: deferred Abdomen: Positive: soft (gravid obese ) Genitourinary (Female): Positive: normal external genitalia Uterus: Positive: enlarged (gravid ) Extremities: Positive: normal - Obstetrical FHR: auscultation normal Uterine Contraction Monitor Mode: External Cervical Dilatation: 4 Cervical Effacement Percentage: 70 station: -2 Uterine Contraction Pattern: Irregular Uterine Tone Measurement Phase: Resting Uterine Contraction Intensity: Moderate Results All other labs normal. Assessment and Plan A: IUP at 40w1d Active labor Asthma Alpha Thalassemia Carrier GBS Negative P: Admit to labor and delivery Pitocin augmentation as indicated Routine intrapartum care
--- NOTE | 2019-11-14 23:37 | Event Note ---
Date: 11/14/19 Pt comfortable with epidural. SVE: /-2. AROM- meconium. Continue routine intrapartum care.
[2019-11-14] MEDS ORDERED: SODIUM CHLORIDE 0.9% 1000 ML 1,000 ML VG SCH (23:45)
--- NOTE | 2019-11-14 23:51 | Event Note ---
Date: 11/14/19 Pt with deep variable down to 70s. SVE: /-2. IUPC placed. Begin amnioinfusion. Closely monitor maternal and status.
[2019-11-14 23:52] LABS: Hematocrit 32.8 % (30.3-42.9); Hemoglobin 10.3 gm/dl (10.1-14.3); Mean Corpuscular HGB Conc 31 % (30-34); Red Blood Count 4.88 M/mm3 (3.65-5.03); Red Cell Distribution Width 15.8 % (13.2-15.2)
[2019-11-14] MEDS ORDERED: SODIUM CHLORIDE 0.9% 1000 ML 1,000 ML ONE (23:52)
[2019-11-15] LABS: Mean Corpuscular Volume 67 fl (79-97); Platelet Count 210 K/mm3 (140-440)
[2019-11-15] MEDS: OXYTOCIN 20 UNIT/1000ML DRIP 20 UNITS/1,000 ML BAG IV SCH ×2 (05:05→07:00)
--- NOTE | 2019-11-15 05:48 | Procedure Note ---
OB Delivery Note - Delivery Date of Delivery: 11/15/19 Surgeon: EVANS TRACY Estimated blood loss: 300cc - Vaginal Delivery presentation: vertex Delivery position: OA Intrapartum events: PROM->1hr before delivery, meconium, mult.variable deceleratio Delivery induction: none Delivery augmentation: rupture of membranes Delivery monitor: external FHT, external uterine Route of delivery: Delivery placenta: spontaneous Episiotomy: none Delivery laceration: other (Bilateral periurethral lacerations- hemostatic without repair ) Anesthesia: epidural Delivery comments: Pt progressed to complete/complete/+2 and pushed to deliver a viable male over intact perineum via spontaneous vaginal delivery under epidural anesthesia while on-call provider was in the operating room. Delivery attended by Charge Nurse. Upon entry into room, cord had been clamped and cut and is in the warmer. Placenta in situ. Placenta delivered spontaneously. Vagina and perineum explored. Bilateral periurethral lacerations noted to be hemostatic. EBL 300 mL. - Infant A at 1 minute: 8 at 5 minutes: 9 Gender: Male (2952g (6lb 8oz) @ 0449 am)
[2019-11-15] MEDS ORDERED: LANOLIN/ZINC/DIMETHICONE (LANSINOH) 7 GM TP PRN ×2 (09:01→09:30)
[2019-11-15] MEDS ORDERED: PROMETHAZINE 25 MG TAB PO PRN (09:01)
[2019-11-15] MEDS ORDERED: PROMETHAZINE 25 MG RECT SUPP PR PRN (09:01)
[2019-11-15] MEDS ORDERED: FERROUS SULFATE 325 MG TAB PO ONE (09:06)
[2019-11-15] MEDS: FERROUS SULFATE 325 MG TAB PO SCH ×2 (09:12→21:51)
[2019-11-15] MEDS: IBUPROFEN 600 MG TAB PO SCH ×2 (09:12→15:27)
[2019-11-15] MEDS ORDERED: ONDANSETRON 4 MG/2 ML INJ IV PRN (09:30)
[2019-11-15] MEDS ORDERED: OXYTOCIN 20 UNIT/1000ML DRIP 20 UNITS/1,000 ML BAG IV SCH (09:30)
[2019-11-15] MEDS ORDERED: WITCH HAZEL/ GLYCERIN PAD TP PRN (09:30)
[2019-11-15] MEDS ORDERED: diphenhydrAMINE 25 MG CAP PO PRN (09:30)
[2019-11-15] MEDS ORDERED: ACETAMINOPHEN 325 MG TAB PO PRN (09:30)
[2019-11-15] MEDS ORDERED: BENZOCAINE/MENTHOL 20/0.5% TOP SPRAY 56 GM TP PRN (10:00)
[2019-11-15 19:33] LABS: Hematocrit 29.1 % (30.3-42.9); Hemoglobin 9.3 gm/dl (10.1-14.3)
[2019-11-15] MEDS: HYDROcodone/ACETAMINOPHEN 5-325 MG TAB PO PRN (21:51)
[2019-11-15] MEDS ORDERED: MAGNESIUM HYDROXIDE (MOM) ORAL LIQD UDC PO PRN (22:00)
[2019-11-16] MEDS ORDERED: DIPHtheria,PERTUSSIS(ACELL),TETANUS VACCINE/PF 0.5 ML VIAL IM ONE (07:00)
--- NOTE | 2019-11-16 08:44 | Progress Note ---
Assessment and Plan A: PPD1 s/p Acute on chronic anemia due to and blood loss Vital signs stable P: Ferrous sulfate supplementation Routine pp care Subjective - Subjective Date of service: 11/16/19 Principal diagnosis: s/p Interval history: PPD1 s/p Patient reports: appetite normal, voiding normally, pain well controlled, ambulating normally [place]: doing well Objective - Vital Signs Latest vital signs: Vital Signs Temp Pulse Resp BP BP Pulse Ox 11/16/19 00:31 65 101/55 97 11/16/19 00:30 98.6 F 18 11/15/19 20:35 66 11/15/19 20:34 97.9 F 18 105/53 11/15/19 15:51 98.3 F 18 94/49 11/15/19 15:48 78 93/52 100 11/15/19 12:04 97.8 F 66 18 96/48 100 11/15/19 09:13 97.7 F 72 19 106/51 99 Intake and Output 11/15/19 11/16/19 11/16/19 23:59 07:59 15:59 Intake Total 580 300 Balance 580 300 Intake: Oral 120 Intake, Free Water 460 300 Other: Total, Intake Amount 120 # Voids Void 1 - Exam Lungs: Present: Normal air movement Abdomen: Present: soft. Absent: distention Uterus: Present: firm, fundal height below umbilicus. Absent: bogginess - Labs Labs: Abnormal lab results 11/15/19 Range/Units 19:06 Hgb 9.3 L (10.1-14.3) gm/dl Hct 29.1 L (30.3-42.9) %
[2019-11-16] MEDS: HYDROcodone/ACETAMINOPHEN 5-325 MG TAB PO PRN (09:33)
[2019-11-16] MEDS: FERROUS SULFATE 325 MG TAB PO SCH (09:35)
[2019-11-16] MEDS: IBUPROFEN 600 MG TAB PO SCH (09:35)
[2019-11-16] MEDS ORDERED: MEASLES, MUMPS & RUBELLA 12,500 UNIT/0.5 ML VACCINE SUB-Q ONE (11:00)
--- NOTE | 2019-11-16 18:42 | Discharge Summary ---
Providers - Providers Date of Admission: 11/14/19 20:42 Date of discharge: 11/17/19 Attending physician: EVANS TRACY Primary care physician: KELLI OWENS MD Hospitalization Reason for admission: active labor Delivery: Procedure details: See delivery note Episiotomy: none Laceration: other (bilateral periurethral abrasion, not repaired) Other procedures: none complications: none Discharge diagnosis: IUP at term delivered Hospital course: Pt arrived inactive labor and progressed to of viable infant. course was complicated by acute on chronic anemia. She met discharge criteria on PPD1. Condition at discharge: Good Disposition: DC-01 TO HOME OR SELFCARE Plan - Discharge Medications Prescriptions: Ferrous Sulfate [Feosol 325 MG tab] 325 mg PO BID #60 tablet Ibuprofen [Motrin] 600 mg PO Q6H PRN #60 tablet PRN Reason: Pain - Provider Discharge Summary Activity: routine, no sex for 6 weeks, no heavy lifting 4 weeks, no strenuous exercise Diet: routine Instructions: routine Additional instructions: [] Smoking cessation referral if applicable(refer to patient education folder for contact #) [] Refer to [facility] Booklet Call your doctor immediately for: * Fever > 100.5 * Heavy vaginal bleeding ( >1 pad per hour) * Severe persistent headache * Shortness of breath * Reddened, hot, painful area to leg or breast * Drainage or odor from incision. * Keep incision clean and dry at all times and follow doctor's instructions regarding bathing/showering - Follow up plan Follow up: DIANNE WELLS CNM [Advanced Practice Nurse] - 14 Days (Please call office to schedule appointment.)
--- NOTE | 2019-11-16 20:33 | Post Anesthesia Evaluation ---
- Post Anesthesia Evaluation Patient Participated: Yes Airway Patent: Yes Stable Respiratory Function: Yes Nausea/Vomiting: No Temp > 96.8F: Yes Pain Manageable: Yes Adequeate Hydration: Yes Anesthesia Complications: No Block Receding Appropriately: Yes
[2019-11-17] MEDS: IBUPROFEN 600 MG TAB PO SCH ×2 (00:22→09:18)
[2019-11-17] MEDS: FERROUS SULFATE 325 MG TAB PO SCH (09:17)
[2019-11-17 10:09] VITALS: BP 120/71
== END 2019-11-17 13:00 | disposition home or self-care (01) | DRG 775 ==
LOC: TRG 19:31 → APU 19:32 → LD 20:42 → TRG 20:42 → OB 11-15 08:56
PROVIDERS: ADMIT Obstetrics & Gynecology; ATTEND Obstetrics & Gynecology
PROC: 10E0XZZ Delivery of Products of Conception, External Approach (ICD-10-PCS; principal; 2019-11-15)
PROC: 3E0R3BZ Introduction of Anesthetic Agent into Spinal Canal, Percutaneous Approach (ICD-10-PCS; 2019-11-15)
PROC: 00HU33Z Insertion of Infusion Device into Spinal Canal, Percutaneous Approach (ICD-10-PCS; 2019-11-15)
DX: O76 Abnormality in fetal heart rate and rhythm complicating labor and delivery (principal); O99.513 Diseases of the respiratory system complicating pregnancy, third trimester; O77.0 Labor and delivery complicated by meconium in amniotic fluid; O99.02 Anemia complicating childbirth; J45.909 Unspecified asthma, uncomplicated; O71.82 Other specified trauma to perineum and vulva; Z3A.40 40 weeks gestation of pregnancy; Z37.0 Single live birth
CPT/HCPCS: 36415; 59025; 76819; 85014; 85018; 85027; 86592; 86850; 86900; 86901; 90471; 90715; G0378; A6250; J0595; J2405; J2590; J3490; J7030; J7120